=== PATIENT | male | born 1950 | race Caucasian/White ===

== ENCOUNTER 2024-07-11 08:45 | Outpatient (CLI) | payer MEDICARE, SELFPAY ==
--- NOTE | 2024-07-11 12:29 | P.ANES_ITS ---
Anesthesia Charges Start Date/Time Anesthesia Start Date: 07/11/24 Anesthesia Start Time: 11:46 Stop Date/Time Anesthesia Stop Date: 07/11/24 Anesthesia Stop Time: 12:45 Summary Extremes of Age - Over 70 or under 1: CHILD CARE TEAM LEAD Coding CPT Codes CPT Codes: ALLIE LWR INTST NDSC NOS - [id number] ([id number]) P2 - PATIENT W/MILD SYST DISEASE, QK - COMPUTER LAB ASSISTANT 2-4 CNCRNT ANEDuncan PROC, QX - CHILD CARE TEAM LEAD SVC W/ MD MED DIRECTION Additional Codes: Summary - Extremes of Age - Over 70 or under 1: CHILD CARE TEAM LEAD ([id number])
--- NOTE | 2024-07-11 12:29 | W.ANESCHARGE ---
Anesthesia Charges Start Date/Time Anesthesia Start Date: 07/11/24 Anesthesia Start Time: 11:46 Stop Date/Time Anesthesia Stop Date: 07/11/24 Anesthesia Stop Time: 12:45 Summary Extremes of Age - Over 70 or under 1: TUBE INSPECTOR Coding CPT Codes CPT Codes: ALLIE LWR INTST NDSC NOS - [id number] ([id number]) P2 - PATIENT W/MILD SYST DISEASE, QK - DOLL WIGS HACKLER 2-4 CNCRNT ANEDuncan PROC, QX - TUBE INSPECTOR SVC W/ MD MED DIRECTION Additional Codes: Summary - Extremes of Age - Over 70 or under 1: TUBE INSPECTOR ([id number])
--- NOTE | 2024-07-11 13:03 | W.ANESCHARGE ---
Anesthesia Charges Start Date/Time Anesthesia Start Date: 07/11/24 Anesthesia Start Time: 11:46 Stop Date/Time Anesthesia Stop Date: 07/11/24 Anesthesia Stop Time: 12:45 Summary Extremes of Age - Over 70 or under 1: MDA Coding CPT Codes CPT Codes: ANES LWR INTST NDSC NOS - [id number] ([id number]) QK - SAND MILLER 2-4 CNCRNT ANES PROC, QX - FINANCIAL REPORT SERVICE SALES AGENT SVC W/ MD MED DIRECTION, P2 - PATIENT W/MILD SYST DISEASE Additional Codes: Summary - Extremes of Age - Over 70 or under 1: MDA ([id number])
== END 2024-07-11 08:46 | disposition home or self-care (01) ==
PROVIDERS: PCP Student in an Organized Health Care Education/Training Program; Visit Provider Internal Medicine Gastroenterology
DX: Z12.11 Encounter for screening for malignant neoplasm of colon (principal); Z86.0109 Personal history of other colon polyps; D12.2 Benign neoplasm of ascending colon; D12.8 Benign neoplasm of rectum
CPT/HCPCS: 00811; 45385; 88305; 99100; J2704